=== PATIENT | female | born 1955 | race Caucasian/White ===

== ENCOUNTER → 2023-06-27 | Day surgery (SDC) | payer MEDICARE, MEDICAID ==
[~2023-06-27] VITALS: Ht 153.7 cm; Wt 80.3 kg
[~2023-06-27] MED LIST: BALANCED SALT IRRIG SOLN COMB1 500ML OP ONE; CHOL2000 PO; CYCLOPENTOLATE HCL 1% OPHTH DROPS 2ML RIGHTEYE ONE; FENTANYL CITRATE/PF 50MCG/ML 2ML VIAL ONE; HYALURONATE SODIUM 10 MG/ML 0.55ML SYRINGE IO ONE; KETOROLAC 30MG/ML VIAL ONE; LACTATED RINGERS 1,000 ML IV SCH; MIDAZOLAM HCL 2 MG/2 ML VIAL ONE; PHENYLEPHRINE HCL 10% OPHTH DROPS 5ML RIGHTEYE ONE; TROPICAMIDE 1% OPHTH DROPS 15ML RIGHTEYE ONE; TRYPAN BLUE 0.5 ML DISP.SYRIN IO ONE
== END | disposition home or self-care (01) ==
LOC: OR 07:14
PROVIDERS: ATTEND Ophthalmology
DX: H25.89 Other age-related cataract (principal); Z79.899 Other long term (current) drug therapy; Z98.890 Other specified postprocedural states
CPT/HCPCS: 66984; J3010; J1885; J2250; J3490; A4217; Z7610 ×22; V2632; Q9957

== ENCOUNTER → 2023-07-11 | Day surgery (SDC) | payer MEDICARE, MEDICAID ==
[~2023-07-11] VITALS: Ht 153.7 cm; Wt 80.3 kg
[~2023-07-11] MED LIST changes: +BALANCED SALT IRRIG SOLN COMB1 500ML OP NR; -BALANCED SALT IRRIG SOLN COMB1 500ML OP ONE; +CYCLOPENTOLATE HCL 1% OPHTH DROPS 2ML LEFTEYE SCH; -CYCLOPENTOLATE HCL 1% OPHTH DROPS 2ML RIGHTEYE ONE; +ONDANSETRON HCL 4MG/2ML INJ IV SCH; +PHENYLEPHRINE HCL 10% OPHTH DROPS 5ML LEFTEYE SCH; -PHENYLEPHRINE HCL 10% OPHTH DROPS 5ML RIGHTEYE ONE; +TROPICAMIDE 1% OPHTH DROPS 15ML LEFTEYE SCH; -TROPICAMIDE 1% OPHTH DROPS 15ML RIGHTEYE ONE; -TRYPAN BLUE 0.5 ML DISP.SYRIN IO ONE
== END | disposition home or self-care (01) ==
LOC: OR 06:26
PROVIDERS: ATTEND Ophthalmology
DX: H25.89 Other age-related cataract (principal); Z79.899 Other long term (current) drug therapy; Z98.890 Other specified postprocedural states; Z87.891 Personal history of nicotine dependence; Z80.3 Family history of malignant neoplasm of breast
CPT/HCPCS: 66984; J3010; J1885; J2250; J2405; J3490; A4217; Z7610 ×18; V2632